=== PATIENT | male | born 1985 | race Caucasian/White ===

== ENCOUNTER 2018-11-26 18:52 | Emergency (ER) | payer SELFPAY ==
[2018-11-26 19:16] VITALS: BP 116/70; PULSE 70; TEMP 98.1; BMI 21.2
--- NOTE | 2018-11-26 19:57 | PDOC ---
History of Present Illness - General Chief Complaint: Pain Stated Complaint: STD SCREENING Time Seen by Provider: 11/26/18 19:48 History Source: Patient Exam Limitations: No Limitations - History of Present Illness Initial Comments: 11/26/18 19:53 HISTORY OF PRESENT ILLNESS: This a 33-year-old male denies medical history presents emergency Department requesting STD testing. Patient states his ex- girlfriend and his current girlfriend were talking and he ex-girlfriend stated that this patient gave her herpes. Patient is requesting testing at this time. Patient is asymptomatic at this time. No recent travel or sick contacts. PAST MEDICAL HISTORY: Denies past medical history SURGICAL HISTORY: Denies ALLERGIES: No known drug allergies REVIEW OF SYSTEMS General/Constitutional: Denies fever or chills. Denies weakness, weight change. HEENT: Denies change in vision. Denies ear pain or discharge. Denies sore throat. Cardiovascular: Denies chest pain or shortness of breath. Respiratory: Denies cough, wheezing, or hemoptysis. Gastrointestinal: Denies nausea, vomiting, diarrhea or constipation. Denies rectal bleeding. Genitourinary: Denies dysuria, frequency, or change in urination. Musculoskeletal: Denies joint or muscle swelling or pain. Denies neck or back pain. Skin and breasts: Denies rash or easy bruising. Neurologic: Denies headache, vertigo, loss of consciousness, or loss of sensation. Psychiatric: Denies depression or anxiety. Endocrine: Denies increased thirst. Denies abnormal weight change. Hematologic/Lymphatic: Denies anemia, easy bleeding, or history of blood clots. Allergic/Immunologic: Denies hives or skin allergy. Denies latex allergy. PHYSICAL EXAM General Appearance: Well-appearing, appropriately dressed. No apparent distress , no intoxication. HEENT: EOMI, PERRLA, normal ENT inspection, normal voice, TMs normal, pharynx normal. No conjunctival pallor. No photophobia, scleral icterus. Neck: Supple. Trachea midline. No tenderness, rigidity, carotid bruit, stridor , lymphadenopathy, or thyromegaly. Respiratory/Chest: Lungs CTAB. No shortness of breath, chest tenderness, respiratory distress, accessory muscle use. No crackles, rales, rhonchi, stridor , wheezing, dullness Cardiovascular: RRR. S1, S2. No JVD, murmur, bradycardia, tachycardia. Vascular Pulses: Dorsalis-Pedis (R): 2+, Dorsalis-Pedis (L): 2+ Gastrointestinal/Abdominal: Normal bowel sounds. Abdomen soft, non-distended. No tenderness or rebound tenderness. No organomegaly, pulsatile mass, guarding, hernia, hepatomegaly, splenomegaly. Genitals: Circumcised penis. Spermatic cords present. No discharge from urinary meatus present. Testicles without growths, lesions or tenderness. Lymphatic: No adenopathy, tenderness. Musculoskeletal/Extremities: Normal inspection. FROM of all extremities, normal capillary refill. Pelvis Stable. No CVA tenderness. No tenderness to extremities, pedal edema, swelling, erythema or deformity. Integumentary: Appropriate color, dry, warm. No cyanosis, erythema, jaundice or rash Neurologic: stockroom attendant II-XII intact. Fully oriented, alert. Appropriate mood/affect. Motor strength 5/5. No appreciable EOM palsy, facial droop or sensory deficit. 11/26/18 20:12 Past History - Past Medical History Allergies/Adverse Reactions: Allergies Allergy/AdvReac Type Severity Reaction Status Date / Time No Known Allergies Allergy Verified 11/26/18 19:15 COPD: No - Suicide/Smoking/Psychosocial Hx Smoking History: Never smoked *Physical Exam - Vital Signs Last Vital Signs Temp Pulse Resp BP Pulse Ox 98.1 F 70 18 116/70 99 11/26/18 19:12 11/26/18 19:12 11/26/18 19:12 11/26/18 19:12 11/26/18 19:12 Medical Decision Making - Medical Decision Making 11/26/18 19:54 A/P: 33-year-old male requesting STD testing HIV, RPR, GC urine This patient currently has no active lesions I will defer HSV treatment or testing. Patient is made aware that HSV testing cannot be completed at this time is results will likely be unreliable. discharge Portions of this note have been documented using voice recognition software. As a result, errors may occur in the manager membership process. Effort has been made to correct all grammatical and manager membership error, but some may have been missed. 11/26/18 19:55 *DC/Admit/Observation/Transfer Diagnosis at time of Disposition: Concern about STD in male without diagnosis - Discharge Dispostion Disposition: HOME Condition at time of disposition: Stable Decision to Admit order: No - Referrals - Patient Instructions Additional Instructions: The syphilis test, gonorrhea and chlamydia testing will not be completed for the next few days. You may call and leave message for return phone call with lab results. Be sure to be clear with your name, birthdate, and phone number Return to the emergency department or your primary doctor or mental health clinic for evaluation should he develop any bumps or sores on your genitals. Always use condoms with the partners Followup with [facility] or PMD in one week for reevaluation and retesting. - Post Discharge Activity
== END 2018-11-26 20:27 | disposition home or self-care (01) ==
LOC: JERFT 18:52
DX: Z11.3 Encounter for screening for infections with a predominantly sexual mode of transmission (principal)
CPT/HCPCS: 36415; 86593; 87389; 87491; 87591; 99282-25